=== PATIENT | male | born 1960 | race Caucasian/White ===

== ENCOUNTER 2016-10-06 09:05 | Day surgery (SDC) | payer OTHER ==
[~2016-10-06] VITALS: Ht 188 cm; Wt 81.7 kg
[2016-10-06 09:34] VITALS: Ht 188 cm; Wt 81.7 kg
[2016-10-06 09:52] VITALS: BP 113/78; PULSE 93; RESP 18
[2016-10-06] MEDS ORDERED: FENTAnyl 50 MCG/ML VIAL ONE (10:28)
[2016-10-06] MEDS ORDERED: MIDAZOLAM 1 MG/ML 2 ML INJ ONE (10:28)
[2016-10-06 10:41] VITALS: BP 116/74; PULSE 70; RESP 19
[2016-10-06 10:59] VITALS: BP 120/74; PULSE 72; RESP 16
--- NOTE | 2016-10-06 18:18 | GILP ---
DATE OF PROCEDURE: 10/06/2016 NAME OF PROCEDURE: Colonoscopy and biopsy. SURGEON: Cecelia Royal MD PREOPERATIVE DIAGNOSIS: Screening colonoscopy. POSTOPERATIVE DIAGNOSES: 1. Colonoscopy all the way to the cecum. 2. Small cecal polyp was removed using the biopsy forceps. 3. Internal hemorrhoids. INDICATION FOR THE PROCEDURE: Mr. Uday Burgos is a 56-year-old male patient who was scheduled for screening colonoscopy. The patient has a strong family history of colon cancer. The procedure and possible complications are well explained to the patient, he understood and consen nirmala to the procedure. DESCRIPTION OF PROCEDURE: Under the influence of fentanyl and Versed, the colonoscope was carefully introduced in the rectum and under direct vision, it was advanced all the way to the cecum. FINDINGS: The patient had a small cecal polyp and it was removed using the biopsy forceps. He was noted to have internal hemorrhoids. He tolerated the procedure very well and there was no complication from the procedure. At the end o f the procedure, he was awake with stable vital signs and he was discharged home to the care of his family. IMPRESSION: 1. Colonoscopy all the way to the cecum. 2. Small cecal polyp was removed using the biopsy forceps. 3. Internal hemorrhoids. PLAN: 1. Await histopathology report. 2. Next screening colonoscopy in 5 years. Dictated By: CECELIA ANTONIO/TIM Conf#: [id number] DID#: [id number] CC: CECELIA ROYAL MD;*EndCC*
--- NOTE | 2016-10-06 18:45 | CONS ---
DATE OF ADMISSION: 10/06/2016 DATE OF CONSULTATION: TYPE OF CONSULTATION: Preoperative gastroenterology. Dear Dr. Mahoney: I thank you very much for this kind referral. HISTORY OF PRESENT ILLNESS: Mr. Uday Burgos is a 56-year-old male patient who has been referred t o me for further evaluation of change in the bowel habit. There is no past history of colon neoplas m. The patient never had screening colonoscopy. The patient has family history of colon cancer. T he patient's father had colon cancer. He does not have any upper abdominal pain, nausea, or vomitin g. There is no history of peptic ulcer disease. He is not taking any nonsteroidal anti-inflammator y agents. There is no history of gallstones. He does not have any fever, chills, or jaundice. The re is no history of liver disease. He is not a hypertensive or diabetic. He does not have any hear t disease or lung problem. There is no history of kidney disease. SOCIAL HISTORY: He is a nonsmoker. He does not abuse alcohol. FAMILY HISTORY: Particular for the history of colon cancer in his dad. ALLERGIES: THERE IS NO HISTORY OF SIGNIFICANT DRUG ALLERGY. MEDICATIONS: None. PHYSICAL EXAMINATION: VITAL SIGNS: He is 6 feet 2 inches tall and he weighs 165 pounds. HEART: Examination of the heart reveals normal first and second heart sounds. LUNGS: Clear. ABDOMEN: Soft without any distention. Liver and spleen are not palpable. There are no masses. Th ere is no focal tenderness. Normal bowel sounds are heard. CENTRAL NERVOUS SYSTEM: Does not reveal any focal neurological deficit. IMPRESSION: 1. Change in the bowel habit. 2. Family history of colon cancer. 3. The patient's father had colon cancer. 4. The patient never had screening colonoscopy. PLAN: Screening colonoscopy. The procedure and possible complications are well explained to the patient. He understands and cons ents to the procedure. I thank you once again. With warmest personal regards, Dictated By: OZIEL ROYAL MD GD/NTS Conf#: [id number] DID#: [id number] CC: OZIEL ROYAL MD;*EndCC*
== END 2016-10-06 12:00 | disposition home or self-care (01) ==
LOC: GIL 09:05
PROVIDERS: ATTEND Internal Medicine Gastroenterology
DX: Z12.11 Encounter for screening for malignant neoplasm of colon (principal); D12.0 Benign neoplasm of cecum; K64.8 Other hemorrhoids
CPT/HCPCS: 45380; 88305; J2250; J3010; Z7610